=== PATIENT | female | born 1965 | race African-American/Black ===

== ENCOUNTER 2023-03-26 12:26 | Outpatient (CLI) | payer OTHER, MEDICAID, SELFPAY ==
--- NOTE | 2023-03-26 14:30 | NEURO_ITS ---
Impression: # Complains of tingling/numbness of hands. History of Crohn?s Disease. ? 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 ? 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 ? # Needle/EMG exam with decreased motor unit potentials generally. ? # Severe pain intolerance. ?? Nerve Conduction Studies Anti Sensory Summary Table Stim Site NR Peak (ms) P-T Amp (?V) Site1 Site2 Delta-P (ms) Dist (cm) [place] (m/s) Left Median Anti Sensory (2-3nd Digit) Wrist 4.0 13.6 Wrist 2-3nd Digit 4.0 14.0 35 Wrist 4.3 26.6 Wrist 2-3nd Digit 4.0 14.0 35 Right Median Anti Sensory (2-3nd Digit) NO RESPONSE Wrist NR Wrist 2-3nd Digit 14.0 Wrist 4.1 43.1 Wrist 2-3nd Digit 14.0 Left Radial Anti Sensory (Base 1st Digit) Wrist 2.1 6.6 Wrist Base 1st Digit 2.1 0.0 Right Radial Anti Sensory (Base 1st Digit) Wrist 2.8 8.8 Wrist Base 1st Digit 2.8 0.0 Left Ulnar Anti Sensory (5th Digit) Wrist 4.8 7.6 Wrist 5th Digit 4.8 14.0 29 Right Ulnar Anti Sensory (5th Digit) Wrist 3.4 4.4 Wrist 5th Digit 3.4 14.0 41 Motor Summary Table Stim Site NR Onset (ms) O-P Amp (mV) Site1 Site2 Delta-0 (ms) Dist (cm) [place] (m/s) Left Median Motor (Abd Poll Brev) Wrist 3.9 2.7 Elbow Wrist 5.4 28.0 52 Elbow 9.3 0.8 Right Median Motor (Abd Poll Brev) Wrist 4.6 1.2 Elbow Wrist 5.9 30.0 51 Elbow 10.5 1.4 Left Ulnar Motor (Abd Dig Minimi) Wrist 4.8 0.9 A Elbow Wrist 10.9 31.0 28 A Elbow 15.7 1.0 B Elbow Wrist 5.2 24.0 46 B Elbow 10.0 0.1 Right Ulnar Motor (Abd Dig Minimi) Wrist 3.1 1.6 A Elbow Wrist 7.5 32.0 43 A Elbow 10.6 1.0 B Elbow Wrist 5.3 23.0 43 B Elbow 8.4 1.1 F Wave Studies NR F-Lat (ms) L-R F-Lat (ms) Left Median (Mrkrs) (Abd Poll Brev) 30.30 0.61 Right Median (Mrkrs) (Abd Poll Brev) 29.69 0.61 Left Ulnar (Mrkrs) (Abd Dig Min) 30.38 0.29 Right Ulnar (Mrkrs) (Abd Dig Min) 30.08 0.29 EMG Side Muscle Nerve Root Ins Act Fibs Amp Dur Recrt Comment Right 1stDorInt Ulnar C8-T1 Nml Nml Nml Nml Reduced Right Ext Indicis Radial (Post Int) C7-8 Nml Nml Nml Nml Reduced Right Ext Digitorum Radial (Post Int) C7-8 Nml Nml Nml Nml Reduced Right BrachioRad Radial C5-6 Nml Nml Nml Nml Reduced Right PronatorTeres Median C6-7 Nml Nml Nml Nml Reduced Right Abd Poll Brev Median C8-T1 Nml Nml Nml Nml Reduced Left 1stDorInt Ulnar C8-T1 Nml Nml Nml Nml Reduced Left Ext Indicis Radial (Post Int) C7-8 Nml Nml Nml Nml Reduced Left Ext Digitorum Radial (Post Int) C7-8 Nml Nml Nml Nml Reduced Left BrachioRad Radial C5-6 Nml Nml Nml Nml Reduced Left PronatorTeres Median C6-7 Nml Nml Nml Nml Reduced Left Abd Poll Brev Median C8-T1 Nml Nml Nml Nml Reduced Right ABD Dig Min Ulnar C8-T1 Nml Nml Nml Nml Reduced Left ABD Dig Min Ulnar C8-T1 Nml Nml Nml Nml Reduced MTDD
== END 2023-03-26 12:27 | disposition home or self-care (01) ==
PROVIDERS: Visit Provider Orthopaedic Surgery
DX: G56.03 Carpal tunnel syndrome, bilateral upper limbs (principal); G56.22 Lesion of ulnar nerve, left upper limb; G62.9 Polyneuropathy, unspecified; Z87.19 Personal history of other diseases of the digestive system
CPT/HCPCS: 95886; 95911